=== PATIENT | male | born 1945 | race Two or more races ===

== ENCOUNTER → 2025-02-20 | Outpatient (CLI) | payer OTHER, MEDICAID, SELFPAY ==
--- NOTE | 2025-02-20 12:26 | XR_ITS ---
Examination: Shoulder,right, 3 views Technique: Shoulder AP internal rotation, AP external rotation, Y view shoulder, 3 views Exam date and time :February 20, 2025 at 1255 hours INDICATIONS: Right shoulder pain beginning one week ago FINDINGS: Moderate to advanced narrowing glenohumeral joint No shoulder fracture or dislocation No calcific tendinitis IMPRESSION: Moderate to advanced narrowing glenohumeral joint
== END | disposition home or self-care (01) ==
PROVIDERS: PCP Family Medicine; Referring Provider Nurse Practitioner Family; Visit Provider Nurse Practitioner Family
DX: M25.811 Other specified joint disorders, right shoulder (principal)
CPT/HCPCS: 73030

== ENCOUNTER → 2025-08-20 | Outpatient (CLI) | payer OTHER, MEDICAID, SELFPAY ==
--- NOTE | 2025-08-20 14:00 | XR_ITS ---
EXAMINATION: Ultrasound arterial Doppler sonographic evaluation lower extremity arteries Date and time: August 20, 2025, 1429 hours INDICATIONS: Bilateral leg pain weeks. 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
== END | disposition home or self-care (01) ==
PROVIDERS: PCP Nurse Practitioner Family; Referring Provider Nurse Practitioner Family; Visit Provider Nurse Practitioner Family
DX: M79.605 Pain in left leg (principal); M79.604 Pain in right leg
CPT/HCPCS: 93925

== ENCOUNTER → 2025-10-06 | Outpatient (CLI) | payer OTHER, MEDICAID, SELFPAY ==
--- NOTE | 2025-10-06 13:27 | XR_ITS ---
Examination: CTA abdominal aorta iliofemoral runoff. 2-D sagittal coronal reconstructions. 3-D reconstructions, vascular INDICATIONS: Diagnosis unspecified atherosclerosis lower extremity arteries, great toe. Months Technique: Multiple CTA images of the abdominal aorta iliofemoral runoff arterial vessels, 2.0 mm slice thickness, post intravenous administration 130 cc [id number] 2-D sagittal coronal reconstructions. 3-D reconstructions, vascular 3-D postprocessing, including vascular maximum intensity projection images, 3-D volume rendering Low dose protocols were performed. One or more of the following dose reduction techniques were used; automated exposure control, adjustment of the mA and/or KV according to patient size, use of iterative reconstruction technique. Findings: Gallstones, contracted gallbladder No focal liver or splenic lesions No pancreatic or adrenal mass Benign bilateral renal cysts No hydronephrosis Normal appendix No bowel obstruction Urinary bladder wall thickening up to 10 mm Moderate prostatomegaly No abdominal aortic aneurysmal dilatation Origins celiac superior mesenteric axes renal arteries intact Common iliac external iliac common femoral superficial femoral arteries intact Multiple high-grade stenoses involving bilateral anterior tibial arteries with very poor filling of the distal half of the left anterior tibial artery Posterior tibial arteries bilaterally are attenuated diffusely IMPRESSION: Bilateral significant multiple high-grade stenoses anterior tibial arteries.
== END | disposition home or self-care (01) ==
LOC: SCAT 13:18
PROVIDERS: PCP Nurse Practitioner Family; Referring Provider Nurse Practitioner Family; Visit Provider Nurse Practitioner Family
DX: I70.298 Other atherosclerosis of native arteries of extremities, other extremity (principal)
CPT/HCPCS: 75635; A4649; Q9967